=== PATIENT | male | born 1965 | race American Indian/Alaskan Native ===

== ENCOUNTER 2016-12-04 17:46 | Observation (INO) | payer MEDICARE, MEDICAID ==
[~2016-12-04] VITALS: Ht 175.3 cm; Wt 116.2 kg
--- NOTE | ~2016-12-04 | CON ---
PATIENT'S NAME: THERESA LEGGETT [facility] AGE: 51 Y [address] ROOM: [address] [address] [facility] ADMIT DATE: 12/04/2016 Consultation DISCHARGE DATE: FAMILY PHYSICIAN: MARLEEN GONZÁLES MD ATTENDING PHYSICIAN: JADEN VOGT REFERRING PHYSICIAN: Blaise Chen MD REFERRING PHYSICIAN: Jaden Vogt MD. REASON FOR CONSULT: Chest pain. HISTORY OF PRESENT ILLNESS: This is a 51-year-old gentleman well known to Dr. Chen with history of nonobstructive coronary artery disease with a known 50% lesion, left heart catheterization 2013 to the LCX. Also, has a history of hypertension and obstructive sleep apnea. He reports that he has been experiencing atypical chest discomfort noted in left chest that does not radiate but is constant. His chest is tender on palpation. He states he fell on November 25 hitting his left shoulder, but denies hitting his wrist. Over the last 24 hours, he has had a little more increased shortness of breath and chest pain. Earlier, he reported that he was having a squeezing sensation in the center of his chest with radiation to his left shoulder. There was associated diaphoresis with that as well. He denies any orthopnea or PND. He does have chronic right leg edema. He denies any new shortness of breath with increased pain. He does feel a little more short of breath. He also carries a history of obstructive sleep apnea, stating that his CPAP broken and he was told that he was going to have buy new one, but he cannot afford it. He thinks that he is quite fatigued. He denies any palpitations. There is no report of lightheadedness or dizziness. PAST MEDICAL HISTORY: 1. Nonobstructive coronary artery disease. 2. Obstructive sleep apnea. 3. Diabetes mellitus type 2. 4. Essential hypertension. 5. Dyslipidemia. 6. Blindness with glaucoma. 7. Chronic CPK elevation. 8. Reactive airway disease. 9. History of anemia. 10. History of prostatitis. 11. Chronic kidney disease stage 3. 12. 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 ROOM: [address] [place] [id number] LOCATION: GPCU ADMIT DATE: 12/04/2016 Consultation DISCHARGE DATE: FAMILY PHYSICIAN: MARLEEN GONZÁLES MD ATTENDING PHYSICIAN: JADEN VOGT. 13. Diabetic neuropathy. PAST SURGICAL HISTORY: 1. Bilateral fractured leg with hardware. 2. Resection of anterior tibial nonhealing wound. 3. Right eye cataract surgery. 4. Left heart catheterization in 2012 showing 50% LCX lesion. ALLERGIES: NONE TO MEDICATION. CURRENT MEDICATIONS ARE: 1. Dulera 200 mcg inhaler 2 puffs b.i.d. 2. Heparin infusion. 3. Nitroglycerin infusion. 4. Sodium chloride 70 mL an hour. 5. Alphagan 0.2% ophthalmic drops, one drop b.i.d. 6. Timoptic ophthalmic drops, one drop b.i.d. 7. Align 4 mg daily. 8. Aspirin 325 mg daily. 9. Cardizem or Tiazac 120 mg every day. 10. Catapres 0.3 mg b.i.d. 11. Colace 100 mg b.i.d. 12. Coreg 37.5 mg b.i.d. 13. Humibid LA 600 mg b.i.d. 14. K-Tab 20 mEq every day in the morning and at 11. 15. Synthroid 25 mcg p.o. every day. 16. Lipitor 80 mg every h.s. 17. Mag oxide 400 mg every day. 18. Protonix 40 mg every day. 19. Singulair 10 mg every day. 20. Vasotec 2.5 mg every h.s. 21. Vitamin E 400 International Units every day. 22. Welchol 625 mg p.o. b.i.d. 23. Zyloprim 300 mg every day. 24. Zaroxolyn 5 mg 7:30 in the morning and 1300 in the afternoon. 25. NovoLog per sliding scale. 26. Tresiba subcu every h.s. FAMILY HISTORY: Father had diabetes mellitus and cancer. Mother had [place] and stroke, she also had diabetes and cancer. His siblings have hypertension and diabetes as well. SOCIAL HISTORY: PATIENT'S NAME: THERESA LEGGETT [facility] AGE: 51 Y [address] ROOM: [address] [place], [place] [address] [facility] ADMIT DATE: 12/04/2016 Consultation DISCHARGE DATE: FAMILY PHYSICIAN: MARLEEN GONZÁLES MD ATTENDING PHYSICIAN: JADEN VOGT He is a former smoker. Lives with his son. He quit smoking in 2006. REVIEW OF SYSTEMS: GENERAL: He denies any fevers or chills. HEAD: No history of headache. EYES: No blurred vision or double vision. He has glaucoma and is legally blind. EARS: No problems with hearing. NOSE: No epistaxis or rhinorrhea. MOUTH: No gingival bleeding. THROAT: Denies sore throat, hoarseness, or difficulty swallowing. PULMONARY: Denies cough or hemoptysis. GASTROINTESTINAL: Negative for nausea, vomiting, or diarrhea. No melena or hematochezia. : He denies urinary frequency or urgency. He does have chronic kidney disease. MUSCULOSKELETAL: He has had bilateral fractured ankle with placement of hardware as well as arthritic discomfort in his ankles. PHYSICAL EXAMINATION: VITAL SIGNS: Blood pressure is 163/75 to 184/70, heart rate is 59-60, he is afebrile, on room air. Cardiac enzymes show a chronic elevation of the CPK 483 to 333. CBC: WBC was 4.9, hemoglobin 11.4, hematocrit 36, platelets are 195. Chem Panel: Glucose 137, BUN 44, creatinine 1.4 and it was 1.8, potassium 3.5, chloride 105. Hemoglobin A1c is 8.2. Cholesterol was 134, triglycerides 238, HDL 41, LDL was 47. ASSESSMENT: 1. Atypical chest pain. We will check an echocardiogram and further recommendations will be forthcoming. 2. Chronic kidney disease. This seems to be a little bit better with rehydration. 3. Obstructive sleep apnea. We will see how his echo look and see if we can get him some assistance for his CPAP machine. 4. Diabetes mellitus. This is being monitored by the hospitalist at this time. 5. Hypokalemia. We will replace his potassium with little extra KCl today. This patient has been seen and assessed by Dr. Erika Chen. The assessment and plan, history of present illness, and physical exam are per Dr. Erika Chen. Further recommendations will be forthcoming as information becomes available. PATIENT'S NAME: THERESA LEGGETT [facility] AGE: 51 Y [address] ROOM: [id number] [place] [address] LOCATION: [facility] ADMIT DATE: 12/04/2016 Consultation DISCHARGE DATE: FAMILY PHYSICIAN: MARLEEN GONZÁLES MD ATTENDING PHYSICIAN: JADEN VOGT GLORIA TORRES APRN FOR BLAISE CHEN MD TGP/modl /[id number] d: 12/05/16 1842 t: 12/12/16 1001, CONSULTATION REPORT
--- NOTE | ~2016-12-04 | ECHO ---
Transthoracic Echocardiography Report (TTE) Demographics Patient Name THERESA LEGGETT Date of Study 12/05/2016 Patient Number [id number] Visit Number [id number] Date of 1965 Room Number G6335 Accession Number [id number] Gender Male Age 51 year(s) Referring Saul De La Cruz After School Program Assistant Lady Cardoso RVT, Physician MD TIARA Salas Physician Interpreting Silverio Welsh MD Slitter Cut Off Operator Physician Supervising Ordering Physician Saul De La Cruz MD, MD/MLP Nurse Stress House Repairer Conclusions Contractility Score Summary Normal Left Ventricular contractility was noted. Summary The estimated left ventricular ejection fraction is 55%. The left ventricle is normal in size . Moderate concentric left ventricular hypertrophy. Diastolic assessment reveals Grade II pseudonormal diastolic function . The left atrium is mildly dilated. No significant valvular abnormalities. Procedure Type of Study TTE procedure:2D Echocardiogram, M-Mode, Doppler , Color Doppler. Procedure Date Date: 12/05/2016 Start: 08:10 AM Study Location: Inpatient Portable Technical Quality: Adequate visualization Indications:Acute coronary syndrome and Chest pain. Appropriate Use Criteria: 9 Patient Status: Routine HR: 63 bpm BP: 168/86 mmHg Allergies - No known allergies. M-Mode/2D Measurements LV Diastolic Dimension: 5.18 cm LV Systolic Dimension: 3.53 cm LV Septum Diastolic: 1.49 cm LV PW Diastolic: 1.5 cm AO Root Dimension: 2.9 cm Cardiac Output: 4.14 l/min AV Cusp Separation: 2.6 cm RV Diastolic Dimension: 3.66 cm LA volume: 62 ml LVOT: 2.1 cm RV Base: 3.56 cm LVOT VTI: 19 cm RV Mid: 2.52 cm LV Stroke volume: 65.78 ml TAPSE: 1.81 cm TDI-S': 11.4 cm/s Doppler Measurements AV Peak Velocity: 1.04 m/s MV Peak E-Wave: 0.95 m/s AV Peak Gradient: 4.33 mmHg MV Peak A-Wave: 0.78 m/s AV Mean Gradient: 2 mmHg MV E/A Ratio: 1.22 LVOT Peak Velocity: 0.89 m/s MV P1/2t: 49 msec MV Deceleration Time: 173 msec PV Peak Velocity: 0.95 m/s E' Septal Velocity: 0.06 m/s PV Peak Gradient: 3.59 mmHg E' Lateral Velocity: 0.07 m/s A' Septal Velocity: 0.09 m/s A' Lateral Velocity: 0.15 m/s Findings Left Ventricle Moderate concentric left ventricular hypertrophy. Diastolic assessment reveals Grade I diastolic dysfunction. Right Ventricle Normal right ventricle structure and function. Left Atrium Normal left atrial size. Right Atrium Normal right atrial size. IVC measures 2.06 cm with inspiratory collapse. Mitral Valve Trivial mitral regurgitation by color Doppler. Mild mitral annular calcification. Aortic Valve Normal aortic valve structure and function. Tricuspid Valve Normal tricuspid valve structure and function. No significant TR jet measured to quantify RVSP. Pulmonic Valve Normal pulmonic valve structure and function. Pericardial Effusion Trivial posterior pericardial effusion. Miscellaneous Visualized portions of the aortic root and ascending aorta appear normal in size. Pleural Effusion There is no pleural effusion. Contractility Score LV regional wall motion:(0-Non visualized 1-Normal 2-Hypokinesis 3-Akinesis 4-Dyskinesis 5-Aneurysm) Signature dtt: Blaise Sawyer (cardio) dtd: 12/05/16 0810 Physician Self Edit
--- NOTE | ~2016-12-04 | HP ---
PATIENT'S NAME: THERESA LEGGETT [facility] AGE: 51 Y [address] ROOM: [place] [id number] LOCATION: GPCU ADMIT DATE: 12/04/2016 History & Physical DISCHARGE DATE: FAMILY PHYSICIAN: MARLEEN GONZÁLES MD ATTENDING PHYSICIAN: JAVIER VOGT DATE OF SERVICE: CHIEF COMPLAINT: Chest pain. HISTORY OF PRESENT ILLNESS: This is a 51-year-old male with a history of insulin-dependent diabetes mellitus, CKD 3, and CAD. The patient presented with a 2-day history of chest pain. The patient states that the chest pain was 6/10 at maximum intensity. He describes the chest pain as a squeezing sensation in the center of his chest with radiation to the left arm and into the left shoulder. There was associated diaphoresis with the chest pain. He is also short of breath for the past couple of days. Chest pain is aggravated by exertion. He has noticed some swelling in his legs as well. The patient also complains of slight lightheadedness upon ambulation. He has not had any falls. He denies any head trauma, loss of consciousness, or seizures. Currently, he is on a nitroglycerin drip, and after nitroglycerin, his chest pain has resolved. Denies any abdominal pain, diarrhea, of constipation. No history of fever reported. No other complaints at this point in time. REVIEW OF SYSTEMS: A 10-point review of systems was done and was otherwise negative except as mentioned above. HOME MEDICATIONS: Per MAR. ALLERGIES: TO DYE. PAST MEDICAL HISTORY: 1. Diabetes mellitus, insulin dependent. 2. Chronic kidney disease stage 3. 3. Hypertension. 4. Coronary artery disease. 5. Obstructive sleep apnea, on CPAP. 6. Anemia of chronic disease. PATIENT'S NAME: THERESA LEGGETT [facility] AGE: 51 Y [address] ROOM: [place] [id number] LOCATION: GPCU ADMIT DATE: 12/04/2016 History & Physical DISCHARGE DATE: FAMILY PHYSICIAN: MARLEEN GONZÁLES MD ATTENDING PHYSICIAN: JAVIER VOGT 7. Glaucoma with left eye blindness. 8. Diabetic retinopathy. 9. Peripheral neuropathy. FAMILY HISTORY: Significant for diabetes and stroke in mother. SOCIAL HISTORY: Past history of smoking reported. Past history of alcohol use reported occasionally. He has not had any smoking or alcohol for the past 4 years. Denies any illicit drug use. PHYSICAL EXAMINATION: VITAL SIGNS: Temperature 97.8, pulse 67 and regular, respirations 18, blood pressure 146/54, saturation 98% on room air. GENERAL: The patient is alert and oriented x3. Answers all questions appropriately. No acute distress. HEENT: Head: Normocephalic, atraumatic. Pupils are reactive on the right side. The left eye shows a corneal ulcer in the center of the eye and discoloration of the pupil. Nares clear. Throat clear. Mucous membranes moist. NECK: Supple. No nuchal rigidity. HEART: Regular rate and rhythm. LUNGS: Clear to auscultation bilaterally. ABDOMEN: Soft, nontender, nondistended. Bowel sounds are present. EXTREMITIES: The patient has bilateral lower extremity edema. Right lower extremity chronic skin changes noted. VASCULAR: Pulses 2+ distally bilaterally. NEUROLOGIC: The patient is alert and oriented x3. Follows all commands. Moves all extremities. Cranial nerves 2 through 12 grossly intact. Blindness in left eye secondary to diabetic retinopathy. Deep tendon reflexes 2+/4. Gait not assessed. DIAGNOSTIC STUDIES: Echo is pending at this point of time. Accu-Chek 181. CPK 483. Troponin I less than 0.04. CBC showed a white count of 6.5, hemoglobin 12.2, hematocrit 37.9, platelets 208. CMP showed sodium 138, potassium 4.0, chloride 103, bicarb 26, BUN 49, creatinine 1.8, glucose 174, calcium 8.4, total protein 7.3, albumin 3.2. AST 27, ALT 21, alkaline phosphatase 89, total bilirubin 0.2, magnesium 1.7, anion gap 13.0, globulin 4.1, GFR 40. PT 10.7. INR 1.0, PTT 26. A CK-MB 24.2. EKG showed sinus rhythm with no acute ST changes. Initial EKG showed slight ST elevation in V2, V3, and V4. Repeat EKG showed no acute ST changes. Left axis deviation noted on EKG. Chest x-ray showed no acute cardiopulmonary abnormality. Showed elevation of PATIENT'S NAME: THERESA LEGGETT [facility] AGE: 51 Y [address] ROOM: [address] [place], [place] [address] [facility] ADMIT DATE: 12/04/2016 History & Physical DISCHARGE DATE: FAMILY PHYSICIAN: MARLEEN GONZÁLES MD ATTENDING PHYSICIAN: JAVIER VOGT the right hemidiaphragm. ASSESSMENT AND PLAN: A 51-year-old male presenting with chest pain. 1. Chest pain. Rule out acute coronary syndrome. We will admit the patient to the hospital. We will place him on the ACS protocol. Discussed the case with Cardiology. The patient will receive an echo in the morning. We will trend cardiac enzymes q.6 hours x[address] I will place him on a nitroglycerin drip currently. He will also be placed on a heparin drip. 2. Diabetes mellitus. Continue home insulin regimen. The patient is an insulin-dependent. We will do regular Accu-Cheks. 3. Chronic kidney disease, 3. Monitor creatinine level. 4. Hypertension. Continue home medications. 5. Dyslipidemia. Continue statin. 6. Obstructive sleep apnea. CPAP per home settings. 7. Diabetic retinopathy history. 8. Peripheral neuropathy history. 9. Deep vein thrombosis prophylaxis. The patient is on heparin gtt. 10. Code status: Full code. Discussed with the patient the time of admission. JAVIER VOGT MD MT/vinay /[id number] D: [id number] T: [id number] HISTORY & PHYSICAL
--- NOTE | ~2016-12-04 | DS ---
PATIENT'S NAME: THERESA LEGGETT [facility] AGE: 51 Y [address] ROOM: [address] [place] [address] LOCATION: GPCU ADMIT DATE: 12/04/2016 Discharge Summary DISCHARGE DATE: 12/06/2016 FAMILY PHYSICIAN: Mat Li MD ATTENDING PHYSICIAN: Jaden Vogt FINAL DIAGNOSES: 1. Atypical chest pain, likely costochondritis, resolved. 2. Nonobstructive coronary artery disease. 3. Dyslipidemia. 4. Diabetes mellitus. 5. History of diabetic retinopathy. 6. History of diabetic neuropathy. 7. Obstructive sleep apnea. CONSULTATIONS: Cardiology, Dr. Blaise Sawyer. PROCEDURES PERFORMED: None. REASON FOR ADMISSION: This is a 51-year-old male with a history of nonobstructive CAD. The patient presented with chest pain and hypertensive urgency. The patient was evaluated in the ER, and then further admitted to [facility] for further evaluation and management of chest pain to rule out acute coronary syndrome and hypertensive urgency. DIAGNOSTIC STUDIES: A transthoracic echocardiogram was done during this admission, that showed ejection fraction of 55%, moderate concentric left ventricular hypertrophy, and grade 2 pseudonormal diastolic function were noted, normal left ventricular contractility was noted. Regular Accu-Cheks were done since the patient is a diabetic. Accu-Cheks were in the range of 181 to 344. Serial cardiac enzymes were done. CPK was elevated at 483 on admission, was trended and was normal and 302 at the time of discharge. Troponin is I less than 0.04 x4. Serial CBCs were done, showed essentially normal white count, hemoglobin was 12.2 on admission and 11.8 at discharge, platelet counts were within normal range. Serial BMPs showed normal electrolytes. The patient had acute kidney injury with a creatinine of 1.8 on admission. At the time of discharge, creatinine was stable at 1.1 and normal. The patient had acute kidney injury, that resolved by the time of discharge. Hemoglobin A1c 8.2. Lipid panel was done and showed total cholesterol 134, triglycerides 238, HDL 41, LDL 47. The patient was placed on a heparin drip briefly, and that was monitored with PTT levels. PT, INR, and PTT on admission were normal. UA showed few bacteria, otherwise normal. The patient's CK-MB was 24.2 on admission and was trending down, and 18.2 at the time of discharge. Chest x-ray showed no acute cardiopulmonary abnormality. PATIENT'S NAME: THERESA LEGEGTT [facility] AGE: 51 Y [address] ROOM: [address] [place], [place] [address] LOCATION: GPCU ADMIT DATE: 12/04/2016 Discharge Summary DISCHARGE DATE: 12/06/2016 FAMILY PHYSICIAN: Mat Li MD [facility]IC[facility]SE: The patient was admitted for evaluation and management of chest pain and hypertensive urgency. The patient presented with chest pain that was found to be atypical. He was initially placed on a nitro drip, that resolved his chest pain, also on a heparin drip based on Cardiology's recommendations. Cardiology followed up with the patient. Dr. Blaise Sawyer stated that this was likely atypical chest pain. Cardiac enzymes were trended and were trending down, troponin was never elevated. The next morning, the patient's chest pain was still present despite nitro. He was given Tylenol and his chest pain resolved. The second day, the patient did not have any chest pain. He did not have any diaphoresis or shortness of breath. Heparin drip and nitro drip were then discontinued based on Cardiology's recommendations. This was likely thought to be atypical chest pain, likely costochondritis, that had resolved by the time of discharge. I discussed the case with Dr. Blaise Sawyer, who stated that the patient has nonobstructive coronary artery disease, and no further cardiac testing was recommended. The patient will follow up with Cardiology. The patient had an EKG done, that showed sinus rhythm with left axis deviation, no acute ST changes. The patient presented with hypertensive urgency. He was placed on his home medications. His blood pressure came down nicely. The patient continued to do well. His blood pressure was stable, and he was discharged and asked to follow up with his primary care physician. DISCHARGE INSTRUCTIONS: The patient was discharged on 1800-kilocalorie ADA and cardiac diet. Activities as tolerated. Follow up with Dr. Sawyer Sawyer, Cardiology, in 2 weeks' time. Follow up with Dr. Li in 3-4 days' time. PCP to check a CBC and a BMP. PCP to arrange for CPAP at h.s. the patient was asked to call his PCP if blood sugar more than or equal to 400 on 2 occasions. He was also asked to return to the ER if chest pain or dyspnea recurred or worsened. The patient verbalized understanding. DISCHARGE MEDICATIONS: 1. Allopurinol 300 mg p.o. daily. 2. Aspirin 81 mg p.o. daily. 3. Lipitor 40 mg p.o. q.h.s. 4. Align 4 mg p.o. daily. 5. Coreg 37.5 mg p.o. b.i.d. 6. Clonidine 0.3 mg p.o. b.i.d. 7. Cozaar 50 mg p.o. b.i.d. 8. Welchol 1875 mg p.o. b.i.d. 9. Cardizem 120 mg p.o. daily. 10. Colace 100 mg p.o. b.i.d. PATIENT'S NAME: THERESA LEGGETT [facility] AGE: 51 Y [address] ROOM: [address] [address] [facility] AD[facility] DATE: 12/04/2016 Discharge Summary DISCHARGE DATE: 12/06/2016 FAMILY PHYSICIAN: Mat Li MD ATTENDING PHYSICIAN: Jaden Vogt 11. Demadex 40 mg p.o. b.i.d. 12. Humibid LA 600 mg p.o. b.i.d. 13. Apidra insulin 23 units subcutaneous 3 times daily before meals. 14. Apidra insulin 1 dose subcu per sliding scale insulin p.r.n. with meals. 15. Tresiba 110 units subcutaneous at h.s. 16. Levothyroxine 25 mcg p.o. daily. 17. Magnesium oxide 400 mg p.o. daily. 18. Zaroxolyn 5 mg p.o. b.i.d. 19. Singulair 10 mg p.o. q.h.s. 20. Protonix 40 mg p.o. daily. 21. Potassium chloride 20 mEq p.o. q.a.m. PCP to manage based on BMP. 22. Vitamin E 400 units p.o. daily. 23. Tylenol 650 mg p.o. q.4 hours p.r.n. discomfort. 24. [place] 10/325 mg 1 tab 6 hours p.r.n. pain. 25. Hydralazine 100 mg p.o. t.i.d. 26. Albuterol 2.5 mg per 3 mL inhalation 1 inhalation twice daily p.r.n. shortness of breath. 27. Acular ophthalmic drops 1 drop ophthalmically twice daily. 28. Combigan eye drops 1 drop ophthalmically twice daily. 29. Symbicort 160/4.5 mcg inhalation 2 puffs inhalation twice daily. 30. Glucophage 850 mg p.o. b.i.d. 31. MiraLAX 17 g p.o. daily p.r.n. constipation. 32. Januvia 100 mg p.o. q.a.m. 33. [place] Nasal spray 1 spray nasally every day p.r.n. dry nose. 34. Nitroglycerin 0.4 mg sublingually p.r.n. chest pain. 35. Glucagon 1 mg subcu p.r.n. hypoglycemia. 36. Glucose tabs 16 g p.o. p.r.n. hypoglycemia. This patient was managed by hospitalist and Cardiology teams during this admission. JADEN VOGT MD MT/vinay /[id number] CC: MD Blaise Montejo MD d: 12/07/16 0240 t: 12/22/16 0002, DISCHARGE SUMMARY
--- NOTE | ~2016-12-04 | ER ---
PATIENT'S NAME: THERESA LEGGETT [facility] AGE: 51 Y [address] ROOM: [place] [address] LOCATION: GPCU ADMIT DATE: 12/04/2016 ER/Outpatient Report DISCHARGE DATE: FAMILY PHYSICIAN: MARLEEN GONZÁLES MD ATTENDING PHYSICIAN: JAVIER VOGT Time of Arrival: 1745 hours. The patient was initially seen by Dr. Moreau. I saw the patient when I assumed care at 1800 hours. CHIEF COMPLAINT: The patient is in with complaint of chest pain. HISTORY OF PRESENT ILLNESS: He reports that he has had a 2-day history of an aching pain in his left anterior chest radiating to the left shoulder and left shoulder blade. The pain is worse with exertion. He states that his vision goes black when he stands up too quickly and tries to move around or if he walks for more than 5200 feet. He becomes very dyspneic and feels like he was going to faint and his vision blackens. This gotten worse today. PAST MEDICAL HISTORY: Significant for insulin-dependent diabetes, hypertension, hypercholesterolemia. CURRENT MEDICATIONS: See list. REVIEW OF SYSTEMS: He denies any other recent illnesses. SOCIAL HISTORY: He is a nonsmoker. PHYSICAL EXAMINATION: GENERAL: An alert male appearing much older than his stated age of 51, in no acute distress. VITAL SIGNS: Stable. SKIN: Warm and dry. Color is normal. HEENT: Head, ears, eyes, nose, and throat revealed opacity of his left cornea. Ears, nose and throat were clear. NECK: Supple without JVD. HEART: Had a regular rate and rhythm without murmur. LUNGS: Clear. Breath sounds are equal. PATIENT'S NAME: THERESA LEGGETT [facility] AGE: 51 Y [address] ROOM: [place] [id number] LOCATION: GPCU ADMIT DATE: 12/04/2016 ER/Outpatient Report DISCHARGE DATE: FAMILY PHYSICIAN: MARLEEN GONZÁLES MD ATTENDING PHYSICIAN: JAVIER VOGT ABDOMEN: Soft. EXTREMITIES: Normal. NEUROLOGIC: Normal. DIAGNOSTIC DATA: EKG revealed ST elevation in leads VT, V2, V3, V4. Did not appear to be acute ST-elevation [place]. He had kind of a slurred J-point and a sagging ST-segment. I asked the radiosonde operator to review the EKG and he agreed that no acute intervention was needed. EMERGENCY DEPARTMENT COURSE: The patient was given sublingual nitroglycerin with improvement in his pain. He became pain-free and nitroglycerin drip was initiated. Cardiac enzymes revealed elevated CK-MB with the negative troponin. Dr. William, the hospitalist was called, arrived promptly, evaluated the patient and made arrangements to admit the patient. ASSESSMENT: Chest pain. PLAN: Admit to Dr. William. Consult the radiosonde operator. JANICE ANNA MD JDB/modl /[id number] d: 12/05/16 0656 t: 01/02/17 0955, OUTPATIENT REPORT
[~2016-12-04 17:46] MED LIST: ACULAR5 ML OPHTH; ACUVAIL 0.45%1 EACH OPTH; ALBUTEROL2.5 MG/0.5 INH; ALBUTEROL2.5 MG/31 INH; ALIGN4 MG PO; AMOXICILLIN875 MG PO; APIDRA100 UNIT/1 SUB-Q; ASPIRIN (CHILDR81 MG PO; ASPIRIN LO-DOSE81 MG PO; AUGMENTIN875 MG PO; BUMEX2 MG PO; CARDIZEM CD (T120 MG PO; CATAPRES0.2 MG PO; COLACE100 MG PO; COMBIGAN 0.25 ML/BOT OPHTH; COMBIGAN EYE DRO5 ML OPHTH; COREG12.5 MG PO; COREG25 MG PO; COZAAR50 MG PO; DEMADEX20 MG PO; DRISDOL 5050000 UNIT PO; DULERA 200 MCG/51 EA INH; FISH OIL1000 MG PO; FLORASTOR250 MG PO; GLUCOPHAGE850 MG PO; HUMIBID LA (MU600 MG PO; HYDRALAZINE HC100 MG PO; JANUVIA 100 MG100 MG PO; K-TAB 10MEQ10 MEQ PO; K-TAB ER20 MEQ PO; KEFLEX500 MG PO; LANTUS (IN100 UNIT/M SUB-Q; LANTUS100 UNIT/1 SUB-Q; LIPITOR20 MG PO; LIPITOR40 MG PO; MAGOX 400400 MG PO; MINERIN CREME454 GM TOP; MIRALAX17 GM PO; NORVASC5 MG PO; OCEAN NASAL) (A44 ML NOSE; PERCOCET 10-321 EACH PO; PERCOCET 5-3251 EACH PO; PROAIR HFA8.5 GM INH; PROAIR RESPICL90 MCG INH; PROTONIX40 MG PO; SINGULAIR10 MG PO; SYMBICORT 16010.2 GM INH; TRICOR 160 MG160 MG PO; TYLENOL325 MG PO; VANCOMYCIN HCL250 MG; VITAMIN E400 UNI1 PO; VITAMIN E400 UNI2 PO; WELCHOL625 MG PO; ZAROXOLYN5 MG PO; ZYLOPRIM300 MG PO
[2016-12-04 18:07] LABS: BASOPHIL % 0.5 %; EOSINOPHIL # 0.2 K/uL (0.0-0.5); EOSINOPHIL % 2.6 %; HEMATOCRIT 37.9 % (37.0-53.0); IMMATURE GRANULOCYTE # 0.1 K/uL (0.0-0.3); IMMATURE GRANULOCYTE % 1.1 %; LYMPHOCYTE # 1.7 K/uL (0.8-4.0); LYMPHOCYTE % 25.9 %; MCHC 31.7 gm/dL (32.0-36.5); MONOCYTE # 0.5 K/uL (0.0-1.0); MONOCYTE % 7.2 %; MPV 10.4 fl (9.4-12.4); NEUTROPHIL # (ANC) 4.1 K/uL (1.4-9.0); NEUTROPHIL % 62.7 %; NRBC % 0 /100WBC (0-0.00); PLATELET COUNT 208 K/uL (150-450); RDW-CV 22.1 % (11.9-14.6); WBC 6.5 K/uL (4.0-11.0)
[2016-12-04 18:18] LABS: PROTIME 10.7 SECONDS (9.6-11.1); PTT 26 SECONDS (25-32)
[2016-12-04 18:26] LABS: ALBUMIN 3.2 gm/dL (3.5-5.0); ALK PHOS 89 IU/L (33-138); ALT 21 IU/L (12-78); AST 27 IU/L (10-40); BLOOD UREA NITROGEN 49 mg/dL (6-24); CALCIUM 8.4 mg/dL (8.5-10.5); CHLORIDE 103 mMol/L (96-110); CO2 26 mMol/L (22-32); CPK 483 IU/L (35-332); CREATININE 1.8 mg/dL (0.6-1.3); ESTIMATED GFR (MDRD EQUATION) 40; MAGNESIUM 1.7 mg/dL (1.3-2.6); SODIUM 138 mMol/L (135-145); TOTAL BILIRUBIN 0.2 mg/dL (0.0-1.5); TOTAL PROTEIN 7.3 g/dL (6.0-8.4)
[2016-12-04 21:34] LABS: BILIRUBIN URINE NEGATIVE (NEGATIVE); BLOOD URINE NEGATIVE /UL (NEGATIVE); GLUCOSE URINE NEGATIVE (NEGATIVE); KETONE URINE NEGATIVE (NEGATIVE); LEUKOCYTES URINE 25 /UL (NEGATIVE); NITRITE URINE NEGATIVE (NEGATIVE); PROTEIN URINE 100 mg/dL (NEGATIVE); UROBILINOGEN URINE NORMAL (NORMAL)
[2016-12-04 21:36] LABS: COLOR URINE YELLOW (YELLOW); TURBIDITY URINE CLEAR (CLEAR)
[2016-12-04 21:42] LABS: RBC URINE RARE #/HPF (NEGATIVE)
[2016-12-04 21:43] LABS: BACTERIA URINE FEW (NEGATIVE); MUCUS URINE 1+ (NEGATIVE)
[2016-12-04] MEDS ORDERED: LEVOTHROID (SY25 MCG PO (21:46)
[2016-12-04] MEDS ORDERED: TRESIBA FL100 UNIT/1 SUB-Q (21:51)
[2016-12-05 01:45] LABS: HEMOGLOBIN 11.4 g/dL (12.0-17.0)
[2016-12-05 01:58] LABS: CPK 387 IU/L (35-332)
[2016-12-05 04:49] LABS: BASOPHIL % 0.6 %; EOSINOPHIL # 0.1 K/uL (0.0-0.5); EOSINOPHIL % 2.7 %; HEMOGLOBIN 11.4 g/dL (12.0-17.0); IMMATURE GRANULOCYTE # 0.1 K/uL (0.0-0.3); LYMPHOCYTE # 1.6 K/uL (0.8-4.0); LYMPHOCYTE % 32.4 %; MCH 25.2 pg (27.0-34.0); MCHC 31.7 gm/dL (32.0-36.5); MCV 79.5 fl (83.0-98.0); MONOCYTE # 0.3 K/uL (0.0-1.0); MONOCYTE % 6.8 %; NEUTROPHIL # (ANC) 2.8 K/uL (1.4-9.0); NEUTROPHIL % 56.5 %; NRBC % 0 /100WBC (0-0.00); PLATELET COUNT 195 K/uL (150-450); RBC 4.53 M/uL (4.00-6.00); RDW-CV 21.9 % (11.9-14.6); WBC 4.9 K/uL (4.0-11.0)
[2016-12-05 05:02] LABS: ANION GAP 11.5 (10.0-19.0); CALCIUM 8.4 mg/dL (8.5-10.5); CREATININE 1.4 mg/dL (0.6-1.3); POTASSIUM 3.5 mMol/L (3.7-5.1)
[2016-12-05 07:57] LABS: CPK 333 IU/L (35-332)
[2016-12-05 17:12] LABS: CPK 302 IU/L (35-332)
[2016-12-06 05:59] LABS: BASOPHIL % 0.5 %; EOSINOPHIL # 0.1 K/uL (0.0-0.5); EOSINOPHIL % 2.2 %; HEMATOCRIT 38.2 % (37.0-53.0); HEMOGLOBIN 11.8 g/dL (12.0-17.0); IMMATURE GRANULOCYTE # 0.1 K/uL (0.0-0.3); IMMATURE GRANULOCYTE % 1.1 %; LYMPHOCYTE # 1.3 K/uL (0.8-4.0); LYMPHOCYTE % 24.4 %; MCHC 30.9 gm/dL (32.0-36.5); MCV 80.9 fl (83.0-98.0); MONOCYTE # 0.3 K/uL (0.0-1.0); NEUTROPHIL # (ANC) 3.6 K/uL (1.4-9.0); NEUTROPHIL % 65.8 %; NRBC % 0 /100WBC (0-0.00); PLATELET COUNT 214 K/uL (150-450); RBC 4.72 M/uL (4.00-6.00); WBC 5.5 K/uL (4.0-11.0)
[2016-12-06 06:16] LABS: ANION GAP 13.1 (10.0-19.0); BLOOD UREA NITROGEN 27 mg/dL (6-24); CALCIUM 8.7 mg/dL (8.5-10.5); CHLORIDE 107 mMol/L (96-110); CO2 25 mMol/L (22-32); CREATININE 1.1 mg/dL (0.6-1.3); ESTIMATED GFR (MDRD EQUATION) > 60; POTASSIUM 4.1 mMol/L (3.7-5.1); SODIUM 141 mMol/L (135-145)
[2016-12-06] MEDS ORDERED: NITROSTAT0.4 MG SL (14:12)
[2016-12-06] MEDS ORDERED: GLUCAGON 1 MG PE1 MG SUB-Q (14:15)
[2016-12-06] MEDS ORDERED: GLUCOSE1 EACH PO (14:17)
[2017-06-07] MEDS ORDERED: CPAP INH (12:44)
== END 2016-12-06 14:36 | disposition disaster alternative care site (69) ==
LOC: GMED 17:46 → GPCU 20:13
PROVIDERS: Emergency Medicine; ADMIT Family Medicine
DX: R07.89 Other chest pain (principal); I25.10 Atherosclerotic heart disease of native coronary artery without angina pectoris; I16.0 Hypertensive urgency; N18.3 Chronic kidney disease, stage 3 (moderate); E78.5 Hyperlipidemia, unspecified; E10.40 Type 1 diabetes mellitus with diabetic neuropathy, unspecified; E10.319 Type 1 diabetes mellitus with unspecified diabetic retinopathy without macular edema; G47.33 Obstructive sleep apnea (adult) (pediatric); Z87.891 Personal history of nicotine dependence; Z98.41 Cataract extraction status, right eye; Z79.82 Long term (current) use of aspirin; Z79.84 Long term (current) use of oral hypoglycemic drugs; Z79.51 Long term (current) use of inhaled steroids; Z79.899 Other long term (current) drug therapy; Z98.890 Other specified postprocedural states
CPT/HCPCS: G0378; J0360; J1644; J2270; J2405; J7030

== ENCOUNTER 2016-12-15 10:05 | Emergency (ER) | payer MEDICARE, MEDICAID ==
--- NOTE | ~2016-12-15 | ER ---
PATIENT'S NAME: THERESA LEGGETT [facility] AGE: 51 Y [address] ROOM: [place] [address] LOCATION: [facility] ADMIT DATE: 12/15/2016 ER/Outpatient Report DISCHARGE DATE: 12/15/2016 FAMILY PHYSICIAN: Mat Li MD ATTENDING PHYSICIAN: Jose Manuel Lion TIME OF ARRIVAL: 1012 hours. TIME OF EVALUATION: 1020 hours. CHIEF COMPLAINT: Vomiting. HISTORY OF PRESENT ILLNESS: The patient is a 51-year-old male who presents to the emergency department today with a chief complaint of vomiting. He reports this started about 2 days prior to arrival. Does have a dry cough for the past 9-1/2 days. He reports he feels having some subjective fevers. Denies any chills. Does report he had diarrhea 2 days ago, but none since. No constipation. No urinary frequency, urgency, or painful urination. He has had some nasal congestion, nasal drainage as well. Denies any pain currently. He has had some mid epigastric abdominal pain. PAST MEDICAL HISTORY: Insulin-dependent diabetes, hypertension, obstructive sleep apnea, obesity, diabetic retinopathy, diabetic neuropathy, dyslipidemia. PAST SURGICAL HISTORY: Eye, shoulder, knee, and ankle. SOCIAL HISTORY: The patient denies any tobacco or illicit drug use. ALLERGIES: NO KNOWN DRUG ALLERGIES. MEDICATIONS: Please see list. PRIMARY CARE DOCTORS: Dr. Li. REVIEW OF SYSTEMS: PATIENT'S NAME: THERESA LEGGETT [facility] AGE: 51 Y [address] ROOM: [place] [address] LOCATION: [facility] ADMIT DATE: 12/15/2016 ER/Outpatient Report DISCHARGE DATE: 12/15/2016 FAMILY PHYSICIAN: Mat Li MD ATTENDING PHYSICIAN: Jose Manuel Lion All systems are reviewed by myself and negative with the exception of those discussed in HPI and past medical history. PHYSICAL EXAMINATION: VITAL SIGNS: Weight 109.6 kg, blood pressure 186/86, pulse 79, respiratory rate 20, temperature 99.4, oxygen saturation 94% on room air. GENERAL: This is a 51-year-old male, appears stated age, in no acute distress. HEENT: Normocephalic, atraumatic. Nares with clear discharge bilaterally. TMs are clear. Oropharynx is clear. Mucous membranes are moist. NECK: Supple. There is no nuchal rigidity. CARDIOVASCULAR: Regular rate and rhythm. No murmurs, rubs, or gallops. LUNGS: Clear to auscultation bilaterally. No wheezes, rales, or rhonchi. ABDOMEN: Soft, nontender, and nondistended. No rebound, rigidity, or guarding. MUSCULOSKELETAL: The patient moves all 4 extremities. SKIN: Warm and dry. There are no rashes or lesions noted. LABS AND X-RAYS: Urinalysis 15 protein, 250 blood, 50-100 rbc's. H pylori is positive. Lactate is normal. CBC is normal. CMP is unremarkable except for BUN 48, creatinine 1.7, glucose 260, lipase normal. LFTs normal. Procalcitonin is less than 0.05. IMPRESSION: 1. Helicobacter pylori positive esophagitis. 2. Nausea and vomiting. 3. Initial visit. EMERGENCY DEPARTMENT COURSE: The patient brought back to the examination room. Seen and evaluated by myself. IV is established. Laboratory analysis and imaging are obtained as described above. The patient was given a liter of normal saline. He is positive for H pylori. I have discussed results with the patient. He is given 4 mg Zofran as well. He is tolerating p.o. here in the emergency department. I discussed I would like him to follow up with the primary care doctor, Dr. Li in 2-3 days for re-evaluation. I have discussed with him that I would recommend an endoscopy for further evaluation. I have written a prescription for moxifloxacin, clarithromycin, omeprazole, as well as Zofran for home. I have discussed return to care instructions including worsening symptoms or any other concerns to return to the emergency department as soon as possible. He is agreeable without further questions at this time. DISPOSITION: The patient discharged to home in good condition. PATIENT'S NAME: THERESA LEGGETT [facility] AGE: 51 Y [address] ROOM: [place], [place] [address] LOCATION: [facility] ADMIT DATE: 12/15/2016 ER/Outpatient Report DISCHARGE DATE: 12/15/2016 FAMILY PHYSICIAN: Mat Li MD ATTENDING PHYSICIAN: Jose Manuel Lion DO PANCHO CHAPA/vinay /[id number] d: 12/15/16 1515 t: 12/16/16 1042, OUTPATIENT REPORT
--- NOTE | ~2016-12-15 | ER ---
PATIENT'S NAME: THERESA LEGGETT [facility] AGE: 51 Y [address] ROOM: [place] [address] LOCATION: [facility] ADMIT DATE: 12/15/2016 ER/Outpatient Report DISCHARGE DATE: 12/15/2016 FAMILY PHYSICIAN: Mat Li MD ATTENDING PHYSICIAN: Jose Manuel Lion ADDENDUM: A call was received at 1820 hours from [facility] in [place]. The patient presented with the prescriptions from today's visit, and they just had some questions and concerns regarding his medications. They do put his medications up for him a week at a time. Going through the med list with the pharmacist, we have chosen to hold his Lipitor while he is on the clarithromycin. He is to monitor his blood pressure with the clarithromycin. Prescription was written for omeprazole, and the pharmacist is going to fill that through his insurance, and the patient takes Protonix [id number], and she is going to have him hold his Protonix while he is on the omeprazole. I agreed with that plan of care. ROMAIN ANTHONY APRN FOR DO KELLY CHAPA/vinay /[id number] d: 12/16/16 0032 t: 12/20/16 1243, OUTPATIENT REPORT
[~2016-12-15 10:05] MED LIST changes: +GLUCAGON 1 MG PE1 MG SUB-Q; +GLUCOSE1 EACH PO; +LEVOTHROID (SY25 MCG PO; +NITROSTAT0.4 MG SL; +TRESIBA FL100 UNIT/1 SUB-Q
[2016-12-15 10:55] LABS: BASOPHIL % 0.3 %; HEMATOCRIT 41.1 % (37.0-53.0); HEMOGLOBIN 13.1 g/dL (12.0-17.0); IMMATURE GRANULOCYTE % 0.5 %; LYMPHOCYTE # 1.3 K/uL (0.8-4.0); LYMPHOCYTE % 17.1 %; MCH 25.3 pg (27.0-34.0); MCHC 31.9 gm/dL (32.0-36.5); MCV 79.3 fl (83.0-98.0); MONOCYTE # 0.7 K/uL (0.0-1.0); MONOCYTE % 9.4 %; MPV 10.3 fl (9.4-12.4); NEUTROPHIL # (ANC) 5.5 K/uL (1.4-9.0); NEUTROPHIL % 72.7 %; NRBC % 0 /100WBC (0-0.00); PLATELET COUNT 237 K/uL (150-450); RBC 5.18 M/uL (4.00-6.00); RDW-CV 22.3 % (11.9-14.6); WBC 7.6 K/uL (4.0-11.0)
[2016-12-15 11:16] LABS: BILIRUBIN URINE NEGATIVE (NEGATIVE); BLOOD URINE 250 /UL (NEGATIVE); COLOR URINE YELLOW (YELLOW); GLUCOSE URINE NEGATIVE (NEGATIVE); KETONE URINE NEGATIVE (NEGATIVE); LEUKOCYTES URINE NEGATIVE /UL (NEGATIVE); NITRITE URINE NEGATIVE (NEGATIVE); PROTEIN URINE 15 mg/dL (NEGATIVE); SPEC GRAVITY URINE 1.025 (1.003-1.035); TURBIDITY URINE CLEAR (CLEAR); UROBILINOGEN URINE NORMAL (NORMAL)
[2016-12-15 11:22] LABS: BACTERIA URINE NEGATIVE (NEGATIVE); EPITHELIAL URINE NEGATIVE #/HPF (NEGATIVE); RBC URINE 50-100 #/HPF (NEGATIVE); WBC URINE NEGATIVE #/HPF (NEGATIVE)
[2016-12-15 11:25] LABS: ANION GAP 15.9 (10.0-19.0); CALCIUM 8.3 mg/dL (8.5-10.5); CREATININE 1.7 mg/dL (0.6-1.3); POTASSIUM 3.9 mMol/L (3.7-5.1); TOTAL PROTEIN 8.1 g/dL (6.0-8.4)
[2016-12-15 11:28] LABS: TOTAL BILIRUBIN 0.3 mg/dL (0.0-1.5)
[2017-06-07] MEDS ORDERED: CPAP INH (12:44)
== END 2016-12-15 12:33 | disposition disaster alternative care site (69) ==
LOC: GMED 10:05
PROVIDERS: Emergency Medicine
DX: K20.9 Esophagitis, unspecified (principal); B96.81 Helicobacter pylori [H. pylori] as the cause of diseases classified elsewhere; I10 Essential (primary) hypertension; E66.9 Obesity, unspecified; E11.319 Type 2 diabetes mellitus with unspecified diabetic retinopathy without macular edema; E11.40 Type 2 diabetes mellitus with diabetic neuropathy, unspecified; Z98.890 Other specified postprocedural states; Z79.899 Other long term (current) drug therapy; Z79.82 Long term (current) use of aspirin
CPT/HCPCS: J2405; J7030

== ENCOUNTER → 2016-12-21 | Outpatient (CLI) | payer MEDICARE, MEDICAID ==
[~2016-12-21] MED LIST changes: +ADVAIR 500-501 EACH INH; +APIDRA SOL100 UNIT/1 SUB-Q; +CARTIA XT120 MG PO; +CPAP INH; +FLONASE 50 MCG/16 GM NOSE; +SALINE NASAL SP88 ML NOSE; +SYNTHROID25 MCG PO
== END | disposition disaster alternative care site (69) ==
LOC: LGSMG 11:52
DX: N04.9 Nephrotic syndrome with unspecified morphologic changes (principal); R80.9 Proteinuria, unspecified

== ENCOUNTER 2017-02-24 22:50 | Inpatient (IN) | payer MEDICARE, MEDICAID ==
[~2017-02-24] VITALS: Ht 175.3 cm; Wt 110.9 kg
--- NOTE | ~2017-02-24 | HP ---
PATIENT'S NAME: THERESA LEGGETT [facility] AGE: 51 Y [address] ROOM: [place] [address] LOCATION: GPCU ADMIT DATE: 02/25/2017 History & Physical DISCHARGE DATE: FAMILY PHYSICIAN: MARLEEN GONZÁLES MD ATTENDING PHYSICIAN: DEVAN PIZARRO V DATE OF SERVICE: CHIEF COMPLAINT: Right groin pain. HISTORY OF PRESENT ILLNESS: The patient is a 51-year-old male with past medical history most significant for insulin-dependent diabetes with multiple complications. He presented to the ER today with three days' worth of right groin pain. Unfortunately, the patient is not a very detailed historian, he is not a very good historian. He does not describe any radiation of this pain nor is he able to provide me with the quality of the pain. Upon examining his right groin, I did note that he has a well-healed incision at the site of this pain. He thinks that he may have had a hernia repaired there. His symptoms are associated with nausea and three episodes of vomiting, as well as fevers and chills, being found febrile in the ER with a temperature of 100.8. He also reports left knee pain at the site of prior fracture and surgery. He denies any chest pain, shortness of breath, or syncope. REVIEW OF SYSTEMS: All systems have been reviewed and are negative aside from pertinent positives mentioned above. PAST MEDICAL HISTORY: Significant for 1. Insulin-dependent diabetes. 2. CKD, stage 3. 3. Hypertension. 4. Non-obstructive coronary artery disease. 5. Obstructive sleep apnea. 6. Anemia of chronic disease. 7. Left eye blindness. 8. Diabetic retinopathy. 9. Peripheral neuropathy. 10. Diabetic nephropathy. 11. History of osteomyelitis requiring right fifth toe amputation and right ankle arthrodesis. PATIENT'S NAME: THERESA LEGGETT [facility] AGE: 51 Y [address] ROOM: [place] [address] LOCATION: GPCU ADMIT DATE: 02/25/2017 History & Physical DISCHARGE DATE: FAMILY PHYSICIAN: MARLEEN GONZÁLES MD ATTENDING PHYSICIAN: DEVAN PIZARRO V SOCIAL HISTORY: Significant for distant history of tobacco and no active toxic habits. FAMILY HISTORY: Reviewed and is noncontributory due to multiple medical problems. CURRENT MEDICATIONS: Extensive and currently being compiled to include Tresiba insulin. PHYSICAL EXAMINATION: VITAL SIGNS: Blood pressure was 147/70, pulse was 94, respirations were 20, saturating 97% on room air, and temperature was 100.8. GENERAL APPEARANCE: This is a chronically ill, middle-aged male, in no acute distress, but quite diaphoretic and uncomfortable. NEUROLOGIC: Nonfocal. Eye exam shows extraocular muscle movements are intact. SKIN: Quite wet and warm. LYMPHATIC: Shows no cervical lymphadenopathy. ENDOCRINE: Shows no thyromegaly. LUNGS: Clear to auscultation in all maciel. CARDIAC: Heart rate is regular. No appreciable murmurs, gallops, or rubs. GASTROINTESTINAL: Showed abdomen is soft, nontender, and nondistended. Normoactive bowel sounds. No guarding or rebound. GENITOURINARY: Reveals normal genitalia. I did not appreciate a hernia when the patient coughs or at rest. He is slightly tender to palpation over the right inguinal area at the site of prior incision. VASCULAR: Revealed chronic lower extremity edema, right more than left due to history of ankle arthrodesis. PSYCHIATRIC: Revealed appropriate mood, cognition, and affect. LABORATORY DATA: Studies performed in the ER were significant for a normal lactate, potassium of 3.4, and creatinine of 1.7, which is slightly off the patient's baseline. CRP is 3.2. White count is 12.9 with hemoglobin of 11.5, and platelets of 185. No bands. Procalcitonin is 0.11. Urine is unremarkable. ASSESSMENT AND PLAN: This is a 51-year-old male, who will be admitted with 1. Febrile illness. At this point, blood cultures have been drawn, and we will follow those up. At present, I do not see a treatable focus of infection, and as such, we will hold off on antibiotics. If we become more convinced that infection is present, we will start him on appropriate antibiotics. We will also check him for an influenza swab. 2. Groin pain. I am not able to detect the underlying etiology for the PATIENT'S NAME: THERESA LEGGETT [facility] AGE: 51 Y [address] ROOM: [place] [address] [facility] ADMIT DATE: 02/25/2017 History & Physical DISCHARGE DATE: FAMILY PHYSICIAN: MARLEEN GONZÁLES MD ATTENDING PHYSICIAN: DEVAN PIZARRO V groin pain. Given that he has nausea and vomiting and history of hernia surgery, we will do a CT of his abdomen and pelvis with oral contrast only. 3. Elevated creatinine. This is slightly above the baseline, and we will very gently hydrate the patient. We will consider holding his nephrotoxins. 4. Insulin-dependent diabetes. We will continue the patient on his current regimen. I do see that the patient is on metformin, and we will discontinue that due to creatinine elevation. 5. Nausea and vomiting. I am wondering if the patient has diabetic gastroparesis as well. We will provide him with symptomatic support. Additional management will depend on clinical course. Time dedicated to this patient encounter is 35 minutes. MD ZAYASK/venkatl /[id number] D: [id number] T: [id number] HISTORY & PHYSICAL
--- NOTE | ~2017-02-24 | ER ---
PATIENT'S NAME: THERESA LEGGETT [place] AGE: 51 Y [address] ROOM: [place], [place] [address] LOCATION: [facility] ADMIT DATE: 02/24/2017 ER/Outpatient Report DISCHARGE DATE: FAMILY PHYSICIAN: Mat Li MD ATTENDING PHYSICIAN: Rico Palomares HISTORY OF PRESENT ILLNESS: This patient is a 51-year-old male, who presented to Emergency Room with a two- week history of left leg pain, mainly in the left groin and left knee. He developed a fever with some chills on Monday. He has had accompanied nausea with vomiting x2 and diarrhea x3. No rigors. Pain is persistent. He does have a history of insulin-dependent diabetes mellitus. He is obese. He has sleep apnea and hypertension. He has diabetic retinopathy, neuropathy, and nephropathy, chronic kidney disease, and dyslipidemia. Other than the diabetic neuro changes, no other neuro problems. No psych issues. He does have insulin-dependent diabetes mellitus. No other endocrine problems. He has had some osteomyelitis of his right foot and toe amputation. The patient was initially seen by Quan Hoover. See Quan Hoover's dictation for his chief complaint, history of the present illness, past medical history, and physical exam. LABORATORY DATA AND DIAGNOSTIC STUDIES: I took over the patient's care at the shift change. Bridger asked me to follow up with the patient's laboratory, Doppler studies, x-ray study results, final diagnoses, and treatment plan. Venous Doppler study of the left leg showed no DVT, see report. Urine showed 0 to 2 whites, negative reds, 0 to 2 epithelial cells, negative bacteria per high-powered field, and negative nitrites. Blood cultures x2 were drawn, results are pending. Procalcitonin is 0.11. Lactate was 1.5. Venous pH was 7.5. CMS was normal except for low potassium of 3.4, elevated BUN of 62, elevated creatinine of 1.7, low GFR of 43, and CRP was 3.21. White count was 12,900, 90 segs, 5 lymphs, 4 monos, hemoglobin was 11.5, hematocrit was 35.0, and platelet count was 185,000. Sed rate was elevated at 50. Uric acid was normal at 6.4. X-ray of the left knee showed no acute changes. We will review x-ray with radiologist. IMPRESSION: 1. Febrile illness with chills, nausea, vomiting, and diarrhea. No etiology for the fevers was found at this time. 2. Insulin-dependent diabetes mellitus with diabetic neuropathy, nephropathy, and retinopathy. PATIENT'S NAME: THERESA LEGGETT [place] AGE: 51 Y [address] ROOM: [place] [address] LOCATION: [facility] ADMIT DATE: 02/24/2017 ER/Outpatient Report DISCHARGE DATE: FAMILY PHYSICIAN: Mat Li MD ATTENDING PHYSICIAN: Rico Palomares 3. Stage 3 chronic kidney disease. 4. Obstructive sleep apnea, on CPAP. 5. Exogenous obesity. 6. Hypertension. 7. Dyslipidemia. 8. Atherosclerotic ischemic heart disease with non-obstructive coronary artery disease. PLAN: I did discuss this patient with Dr. Mendoza, hospitalist. Dr. Mendoza is aware of this patient. He is coming down in to the Emergency Room to evaluate him and most likely admit him to the hospital for further evaluation. Discussion was ensued with the patient concerning my findings and recommendations, he understands. MD SKIP STAHL/modl /[id number] d: 02/25/170 t: 02/25/17 1819, OUTPATIENT REPORT
--- NOTE | ~2017-02-24 | DS ---
PATIENT'S NAME: THERESA LEGGETT [facility] AGE: 51 Y [address] ROOM: [place] [address] LOCATION: GPCU ADMIT DATE: 02/25/2017 Discharge Summary DISCHARGE DATE: 02/26/2017 FAMILY PHYSICIAN: Mat Li MD ATTENDING PHYSICIAN: Gera Mendoza V PRIMARY DIAGNOSES: 1. Fever. 2. Nausea and vomiting. 3. Acute kidney injury. 4. Diabetes mellitus type 2, insulin dependent. 5. Coronary artery disease. 6. Right groin pain. 7. Obstructive sleep apnea. 8. Chronic obstructive pulmonary disease. OPERATIONS/PROCEDURES: CT scan of the abdomen and pelvis was performed, 02/25/2017, demonstrating no acute intraabdominal findings. Incidental left inguinal hernia containing fat without any complicating features was noted. HISTORY OF ILLNESS/REASON FOR ADMISSION: Please refer to the H and P dictated 02/25/[address] Mendoza. HOSPITAL COURSE: The patient was admitted to the hospital as noted above with a presumptive diagnosis of fever and intractable nausea and vomiting. He was complaining of some moderately severe right groin pain at presentation. There was mild concern for an intraabdominal or pelvic process and CT scan was obtained. The results were unremarkable. His clinical condition improved with symptomatic measures. He received some careful IV fluid hydration therapy and his ARB therapy and metolazone were held initially. He tolerated that well. By the second day, his groin pain had improved significantly. He was tolerating regular diet without any problems. He was ambulating in the room independently and at that point, it was felt he would be stable enough for discharge to home with plans for close clinical followup with his primary care provider, Dr. Li. DISCHARGE INSTRUCTIONS: Diet: ADA 2000 calorie per day as tolerated. Activities: As tolerated. MEDICATIONS: 1. Allopurinol 300 mg p.o. q.a.m. 2. Atorvastatin 40 mg p.o. q.h.s. PATIENT'S NAME: THERESA LEGGETT [facility] AGE: 51 Y [address] ROOM: [place] [address] LOCATION: GPCU ADMIT DATE: 02/25/2017 Discharge Summary DISCHARGE DATE: 02/26/2017 FAMILY PHYSICIAN: Mat Li MD ATTENDING PHYSICIAN: Gera Mendoza V 3. Carvedilol 37.5 mg p.o. b.i.d. 4. Clonidine 0.3 mg p.o. b.i.d. 5. Losartan 50 mg p.o. b.i.d. 6. Welchol 625 mg 3 tablets p.o. b.i.d. 7. Diltiazem CD 120 mg p.o. daily. 8. Colace 100 mg p.o. b.i.d. 9. Hydralazine 100 mg p.o. t.i.d. 10. Tresiba FlexTouch 110 units subcu q.h.s. 11. Apidra insulin 23 units subcu q.a.c. 12. Glucagon 1 mg subcu daily p.r.n. hypoglycemia. 13. Acular ophthalmic drops one drop each eye b.i.d. 14. Levothyroxine 25 mcg p.o. daily. 15. Mag oxide 400 mg p.o. daily. 16. Protonix 40 mg p.o. daily. 17. Saline nasal spray p.r.n. 18. Demadex 40 mg p.o. b.i.d. 19. Metolazone 5 mg p.o. b.i.d. 20. Vitamin E 400 units p.o. daily. 21. Advair 500/50 one puff p.o. b.i.d. 22. Combigan ophthalmic drops one drop each eye b.i.d. 23. Percocet 10/325 one tablet p.o. q.6 hours p.r.n. pain. 24. Nitroglycerin 0.4 mg sublingually q.5 minutes x3 p.r.n. chest pain. 25. Glucose tablets 16 g p.o. daily p.r.n. hypoglycemia. 26. Flonase nasal spray 2 sprays each nostril daily as needed for allergies. FOLLOWUP: He will follow up with Dr. iL in 7-10 days. CONDITION ON DISCHARGE: Fair. Total time spent on discharge process is 45 minutes. MD NINI ANTOINE/vinay /[id number] d: 02/27/17 0249 t: 03/09/17 1814, DISCHARGE SUMMARY
--- NOTE | ~2017-02-24 | ENPV ---
Vascular Lower Extremities DVT Study Procedure Demographics Patient Name THERESA LEGGETT Date of Study 02/25/2017 Patient Number [id number] Gender Male Date of 1965 Age 51 Visit Number [id number] Height 63 Accession Number [id number] Weight Room Number G6315 BSA BMI Referring Marielle Martinez MD Interpreting Peg Gautam Physician Physician Physician Ordering Physician Marielle Martinez Summer [employer] Counselor MD [address] Stenographer Arabella Joss RDCS, RVT Conclusions Summary TECHNIQUE: The veins of the lower extremity on the right were evaluated from the groin to the ankle using velazquez scale, compression, and augmentation. Venous hemodynamics were evaluated with color flow and spectral Doppler. FINDINGS: The deep and superficial veins of the right leg show normal color flow and compressibility without thrombosis. IMPRESSION: 1. NEGATIVE RIGHT LOWER EXTREMITY VENOUS DOPPLER. Procedure Type of Study: Veins:Lower Extremities DVT Study, Lower Extremity Right. Indications for Study:Pain in Limb. Additional Indications:hot Appropriate Use Criteria:7 Allergies - No known allergies. Patient Status:STAT. Study Location:ER. Technical Quality:Poor visualization due to body habitus. Risk Factors - The patient's risk factor(s) include: orally-treated diabetes mellitus. Velocities are measured in cm/s ; Diameters are measured in cm Right Lower Extremities DVT Study Measurements Right 2D and Doppler Measurements + + + + +------+------+ + !Location !Visualized!Compressibility!Thrombosis!Signal!Reflux!Reflux ! ! ! ! ! ! ! !(sec) ! + + + + +------+------+ + !GSV Thigh !Yes !Yes !None !Phasic!No ! ! + + + + +------+------+ + !Common !Yes !Yes !None !Phasic!No ! ! !Femoral ! ! ! ! ! ! ! + + + + +------+------+ + !Prox !Yes !Yes !None !Phasic!No ! ! !Femoral ! ! ! ! ! ! ! + + + + +------+------+ + !Mid Femoral!Yes !Yes !None !Phasic!No ! ! + + + + +------+------+ + !Dist !Yes !Yes !None !Phasic!No ! ! !Femoral ! ! ! ! ! ! ! + + + + +------+------+ + !Popliteal !Yes !Yes !None !Phasic!No ! ! + + + + +------+------+ + !Gastroc !Yes !Yes !None !Phasic!No ! ! + + + + +------+------+ + !PTV !Yes !Yes !None !Phasic!No ! ! + + + + +------+------+ + !Peroneal !Yes !Yes !None !Phasic!No ! ! + + + + +------+------+ + Left Lower Extremities DVT Study Measurements Left 2D and Doppler Measurements + + + + +------+------+ + !Location !Visualized!Compressibility!Thrombosis!Signal!Reflux!Reflux ! ! ! ! ! ! ! !(sec) ! + + + + +------+------+ + !Common !Yes !Yes !None !Phasic! ! ! !Femoral ! ! ! ! ! ! ! + + + + +------+------+ + Impressions Right Impression no dvt seen Signature dtt: Juan Ruvalcaba: 02/25/17 0040 Physician Self Edit
[~2017-02-24 22:50] MED LIST changes: -ADVAIR 500-501 EACH INH; -APIDRA SOL100 UNIT/1 SUB-Q; -CARTIA XT120 MG PO; -CPAP INH; -FLONASE 50 MCG/16 GM NOSE; -SALINE NASAL SP88 ML NOSE; -SYNTHROID25 MCG PO
[2017-02-24 23:43] LABS: LACTATE 1.5 mEq/L (0.50-1.60)
[2017-02-24 23:44] LABS: BASOPHIL % 0.3 %; EOSINOPHIL % 0.3 %; HEMOGLOBIN 11.5 g/dL (12.0-17.0); IMMATURE GRANULOCYTE # 0.1 K/uL (0.0-0.3); IMMATURE GRANULOCYTE % 0.6 %; LYMPHOCYTE # 0.6 K/uL (0.8-4.0); LYMPHOCYTE % 4.9 %; MCH 27.4 pg (27.0-34.0); MCHC 32.9 gm/dL (32.0-36.5); MONOCYTE # 0.5 K/uL (0.0-1.0); MPV 10.5 fl (9.4-12.4); NEUTROPHIL # (ANC) 11.6 K/uL (1.4-9.0); NEUTROPHIL % 89.9 %; NRBC % 0 /100WBC (0-0.00); WBC 12.9 K/uL (4.0-11.0)
[2017-02-24 23:45] LABS: MCV 83.3 fl (83.0-98.0); PLATELET COUNT 185 K/uL (150-450); RDW-CV 17.4 % (11.9-14.6)
[2017-02-25 00:04] LABS: ALBUMIN 3.3 gm/dL (3.5-5.0); ANION GAP 16.4 (10.0-19.0); CALCIUM 8.7 mg/dL (8.5-10.5); CREATININE 1.7 mg/dL (0.6-1.3); POTASSIUM 3.4 mMol/L (3.7-5.1); TOTAL PROTEIN 7.6 g/dL (6.0-8.4)
[2017-02-25 00:10] LABS: TOTAL BILIRUBIN 0.4 mg/dL (0.0-1.5)
[2017-02-25 00:45] LABS: BILIRUBIN URINE NEGATIVE (NEGATIVE); BLOOD URINE NEGATIVE /UL (NEGATIVE); COLOR URINE YELLOW (YELLOW); GLUCOSE URINE NEGATIVE (NEGATIVE); KETONE URINE NEGATIVE (NEGATIVE); LEUKOCYTES URINE 25 /UL (NEGATIVE); NITRITE URINE NEGATIVE (NEGATIVE); PROTEIN URINE 100 mg/dL (NEGATIVE); SPEC GRAVITY URINE 1.005 (1.003-1.035); TURBIDITY URINE CLEAR (CLEAR); UROBILINOGEN URINE NORMAL (NORMAL)
[2017-02-25 00:52] LABS: BACTERIA URINE NEGATIVE (NEGATIVE); EPITHELIAL URINE 0-2 #/HPF (NEGATIVE); RBC URINE NEGATIVE #/HPF (NEGATIVE); WBC URINE 0-2 #/HPF (NEGATIVE)
--- NOTE | 2017-02-25 07:36 | NUR ---
PATIENT ADMITED THROUGH ER WITH C/O RIGHT GROIN PAIN X 3 DAYS. WITH LEFT KNEE PAIN WELL. X RAYS TAKEN IN ER THAT CAME BACK NEGATIVE. PATIENT IS ADMITED FOR FEVERS AND IS GOING TO HAVE CT OF ABD AND PELVIS WITH CONTRAST THIS AM.
[2017-02-25] MEDS ORDERED: CARTIA XT120 MG PO (12:34)
[2017-02-25] MEDS ORDERED: TRESIBA FL100 UNIT/1 SUB-Q (12:34)
[2017-02-25] MEDS ORDERED: SYNTHROID25 MCG PO (12:34)
[2017-02-25] MEDS ORDERED: ADVAIR 500-501 EACH INH (12:35)
[2017-02-25] MEDS ORDERED: APIDRA SOL100 UNIT/1 SUB-Q (12:35)
[2017-02-25] MEDS ORDERED: FLONASE 50 MCG/16 GM NOSE (12:36)
[2017-02-25] MEDS ORDERED: SALINE NASAL SP88 ML NOSE (12:36)
--- NOTE | 2017-02-25 17:17 | NUR ---
Significant Event: Patient A/O x 3. Hard to understand at times. Up with 1PA. Repositions self in bed. VSS on RA. SBP 160-180's today. Denies pain in right groin this afternoon. LFA PIV SL. Was nauseated for a brief time this morning, but now states that has passed. CT of abdomen/pelvis negative as well as R)leg duplex scan. ACHS accu checks. Follow up: Continue as per plan of care.
--- NOTE | 2017-02-26 04:27 | NUR ---
Patient A/Ox3. VSS on RA. SBP 130-150's Up standby assist. Lungs clear. Bowel sounds present, no BM this shift. Voiding well. IV Saline locked. No complaints of any pain. Slept well.
[2017-02-26 06:27] LABS: BASOPHIL % 0.3 %; EOSINOPHIL # 0.1 K/uL (0.0-0.5); EOSINOPHIL % 1.3 %; HEMATOCRIT 35.9 % (37.0-53.0); HEMOGLOBIN 11.6 g/dL (12.0-17.0); IMMATURE GRANULOCYTE % 0.3 %; LYMPHOCYTE # 1.1 K/uL (0.8-4.0); MCH 27.5 pg (27.0-34.0); MCHC 32.3 gm/dL (32.0-36.5); MCV 85.1 fl (83.0-98.0); MONOCYTE # 0.6 K/uL (0.0-1.0); MONOCYTE % 8.9 %; MPV 10.6 fl (9.4-12.4); NEUTROPHIL # (ANC) 5.2 K/uL (1.4-9.0); NEUTROPHIL % 74.2 %; NRBC % 0 /100WBC (0-0.00); PLATELET COUNT 204 K/uL (150-450); RBC 4.22 M/uL (4.00-6.00); RDW-CV 17.6 % (11.9-14.6)
--- NOTE | 2017-02-26 15:01 | NUR ---
Discharge Summary: Patient A/O x 3. Up in the room independently. Vital signs stable: HR 68, BP 131/66, O2 saturation 93% on RA, RR 19, and afebrile. Denies pain or shortness of breath. Right groin pain absent. Discharge instructions including making an appointment to follow-up with Dr. iL in 7-10 days, signs/symptoms to be aware of, general care instrutions, and diabetes instructions. Refused booklet. No medication changes. Patient and children verbalize understanding of teaching. IV and monitor discontinued. Patient left PCU at 1455 to [facility] entrance per wheelchair and then home to self care with children. No needs at time of discharge. Tejas RN 02/26/17
[2017-06-07] MEDS ORDERED: CPAP INH (12:44)
== END 2017-02-26 14:55 | disposition disaster alternative care site (69) | DRG 864 ==
LOC: GMED 22:50 → GPCU 02-25 04:07
PROVIDERS: Emergency Medicine; Family Medicine; ADMIT Internal Medicine
DX: R50.9 Fever, unspecified (principal); N17.9 Acute kidney failure, unspecified; E11.21 Type 2 diabetes mellitus with diabetic nephropathy; E11.42 Type 2 diabetes mellitus with diabetic polyneuropathy; R11.2 Nausea with vomiting, unspecified; E11.9 Type 2 diabetes mellitus without complications; I25.10 Atherosclerotic heart disease of native coronary artery without angina pectoris; G47.33 Obstructive sleep apnea (adult) (pediatric); J44.9 Chronic obstructive pulmonary disease, unspecified; K40.90 Unilateral inguinal hernia, without obstruction or gangrene, not specified as recurrent; E11.319 Type 2 diabetes mellitus with unspecified diabetic retinopathy without macular edema; Z79.4 Long term (current) use of insulin
CPT/HCPCS: J0360; J2405; J7030

== ENCOUNTER → 2017-03-21 | Outpatient (CLI) | payer MEDICARE, MEDICAID ==
[~2017-03-21] MED LIST changes: +ADVAIR 500-501 EACH INH; +APIDRA SOL100 UNIT/1 SUB-Q; +CARTIA XT120 MG PO; +CPAP INH; +FLONASE 50 MCG/16 GM NOSE; +SALINE NASAL SP88 ML NOSE; +SYNTHROID25 MCG PO
== END ==
LOC: LGSMG 10:56
DX: N18.3 Chronic kidney disease, stage 3 (moderate) (principal); N04.9 Nephrotic syndrome with unspecified morphologic changes; R80.9 Proteinuria, unspecified

== ENCOUNTER → 2017-06-07 | Outpatient (CLI) | payer MEDICARE ==
[2017-06-07 10:03] LABS: INR - (THERAPEUTIC) 1.06 (0.92-1.07); PROTIME 11.1 SECONDS (9.8-11.4)
== END ==
LOC: LGSMG 09:40
PROVIDERS: Internal Medicine
DX: Z01.818 Encounter for other preprocedural examination (principal)